=== PATIENT | female | born 1975 | race Caucasian/White ===

== ENCOUNTER 2017-08-19 12:00 | Outpatient (CLI) | payer OTHER ==
--- NOTE | 2017-08-19 14:42 | CT ---
CT ABDOMEN WITHOUT CONTRAST: Date: 08/19/17 HISTORY: Left upper quadrant pain since lap band removal and gastric sleeve surgery. FINDINGS: Comparison made with exam of 09/16/15. Absence of oral and IV contrast reduce the sensitivity of exam, particularly for evaluation of solid organs. There are interval changes of vertical sleeve gastrectomy and removal of the gastric band sin ce exam of 09/16/15. The lung bases are clear. No free air or free fluid is seen in the abdomen. No c alcified gallstones are noted. A punctate calculus is seen in the superior pole of the right kidney. Mild prominence of the pelvicaliceal systems. The small bowel loops are not abnormally dilated. There are mild degenerative changes in the lumbar spine. A bone island in the right iliac bone is again se en. There is mild pericolonic inflammatory change and thickening of the descending colon in the left mid abdomen. IMPRESSION: 1. Punctate, nonobstructing right renal calculus. 2. Left-sided colitis. POS: [facility]
== END 2017-08-19 12:01 | disposition home or self-care (01) ==
LOC: SCSCT 12:00
PROVIDERS: ATTEND Internal Medicine
DX: R10.9 Unspecified abdominal pain (principal); N20.0 Calculus of kidney; K52.9 Noninfective gastroenteritis and colitis, unspecified
CPT/HCPCS: 74150

== ENCOUNTER 2019-03-06 11:42 | Day surgery (SDC) | payer OTHER ==
[2019-03-05 11:38] VITALS: BMI 25.7
[2019-03-06 12:30] LABS: #Eosinphils 0.1 thou/uL (0.0-0.7); #Lymphocytes 1.4 thou/uL (1.20-3.40); #Monocytes 0.3 thou/uL (0.11-0.59); #Neutrophils 1.7 thou/uL (1.40-6.50); %Basophils 1.1 % (0.0-1.0); %Eosinophils 4.1 % (0.0-10.0); %Neutrophils 47.9 % (42.0-75.0); Hemoglobin 11.2 g/dL (12.0-16.0); Mean Corpuscular HGB CONC 32.7 g/dL (32.0-36.0); Mean Corpuscular Hemoglobin 27.4 pg (27.0-31.0); Mean Corpuscular Volume 83.8 fL (78.0-98.0); Mean Platelet Volume 8.3 fL (7.4-10.4); Platelet Count 265 thou/uL (130-400); RBC Distribution Width 13.2 % (11.5-14.5); Red Blood Cell (RBC) Count 4.11 mill/uL (4.20-5.40); White Blood Cell (WBC) Count 3.6 thou/uL (4.8-10.8)
--- NOTE | 2019-03-06 12:30 | HP ---
CHIEF COMPLAINT: Right upper quadrant abdominal pain. HISTORY OF PRESENT ILLNESS: This is a 43-year-old female, who has been having episodic right upper quadrant pain for about 6 months. Ultrasound showed cholelithiasis. PAST MEDICAL HISTORY: Obstructive sleep apnea, asthma. PAST SURGICAL HISTORY: She has had a lap band, rhinoplasty. She has had a sleeve. She has had a ventral hernia repair. MEDICATIONS: 1. Levothyroxine. 2. Biotin. 3. Multivitamins. FAMILY HISTORY: Father alive, hypertension. Mother has heart disease. SOCIAL HISTORY: She is a nurse practitioner. No tobacco. Occasional alcohol. ALLERGIES: TO CEPHALOSPORINS, LATEX. PHYSICAL EXAMINATION: VITAL SIGNS: Height 72, weight 190, and body mass index 25.8. GENERAL: She is a well-developed, well-nourished female, in no apparent distress. HEENT: Unremarkable. LUNGS: Clear. HEART: Regular rate and rhythm. ABDOMEN: Soft, nondistended, and nontender. Good bowel sounds. No hernias. EXTREMITIES: Good pulses. No pedal edema. ASSESSMENT: Symptomatic cholelithiasis. PLAN: Laparoscopic cholecystectomy. CONSENT: I have discussed the planned procedure as well as risk of bleeding, infection, injury to bile duct, injury to bowel, need to open, she understands and gives informed consent. Job ID: [id number]
[2019-03-06] MEDS ORDERED: Levofloxacin 500 mg/D5W 100 ml Premix Bag ONE (12:54)
[2019-03-06 13:06] LABS: ALT (SGPT) 16 U/L (8-55); AST (SGOT) 17 U/L (5-34); Albumin 4.3 g/dL (3.5-5.0); Alkaline Phosphatase 69 U/L (40-110); Bilirubin, Direct 0.5 mg/dL (0.1-0.3); Bilirubin, Total 1.3 mg/dL (0.2-1.2); Protein, Total 7.2 g/dL (6.0-8.3)
[2019-03-06 13:07] LABS: BHCG - Serum Negative (NEGATIVE); Pregs Control Background? CLEAR/WHITE (CLR/WHITE); Pregs Control Bar Appear? YES (CONTROL BAR)
[2019-03-06] MEDS ORDERED: Bupivacaine/Epinephrine 0.25% 30 ML VIAL ONE (13:21)
[2019-03-06] MEDS ORDERED: Iothalamate Meglumine 60% 50 ML VIAL FS ONE (13:21)
[2019-03-06] MEDS ORDERED: Scopolamine 1.5 mg/72 hour Patch ONE (13:26)
[2019-03-06] MEDS ORDERED: Midazolam HCl 2 mg/2 ml Vial ONE (13:26)
[2019-03-06] MEDS ORDERED: Fentanyl 100 MCG/2 ML VIAL ONE ×2 (13:36→14:49)
[2019-03-06] MEDS ORDERED: SUGAMMADEX SODIUM 500 MG/5 ML VIAL ONE (13:37)
[2019-03-06] MEDS ORDERED: Promethazine HCl 25 MG/ML VIAL ONE (14:49)
--- NOTE | 2019-03-06 15:19 | RAD ---
Intraoperative cholangiogram: 03/06/2019 COMPARISON: None HISTORY: Evaluate following cholecystectomy FINDINGS: A single image from an intraoperative cholangiogram is provided. There is contrast media wi thin the common bile duct in the duodenum. There is contrast media in the gallbladder fossa and there is a linear contrast within incompletely opacified intrahepatic biliary tree. There is contrast media in the cystic duct. There is a vague area of relative decreased density within the mid common duct just medial to the sup erior portion of the opacified duodenum. It's uncertain whether this represents an area of incomplete filling or a filling defect within the common bile duct on the basis of a stone, air bubbl e, and/or blood clot. IMPRESSION: Area of relative hypoenhancement of the midportion of the common bile duct which may repr esent a filling defect. Correlation with real-time imaging is essential. Transcribed Date/Time: 03/06/2019 3:28 PM
--- NOTE | 2019-03-09 12:22 | OP ---
DATE OF PROCEDURE: 03/06/2019 PREOPERATIVE DIAGNOSIS: Symptomatic cholelithiasis with elevated liver function. PROCEDURE PERFORMED: Laparoscopic cholecystectomy with intraoperative cholangiogram. INDICATIONS: The patient is a 43-year-old female, who has been having episodic right upper quadrant pain radiating to back associated with nausea. Ultrasound showed cholelithiasis. FINDINGS: She had a relatively nondilated cystic duct. The cholangiogram had a filling defect, but it turns out probably an air bubble, as when we change positions, it migrated superiorly as though it was little less dense than bile and had more of a cylindrical shape. Free flow into the duodenum. DESCRIPTION OF PROCEDURE: After informed consent was obtained, the patient was taken to the operating room, given general endotracheal anesthesia. She was placed in supine position. Abdomen was prepped and draped in usual fashion. Local anesthesia was infiltrated subcutaneously and deep, and a 12-mm incision was performed in the subumbilical region. Subcu was divided sharply. The fascia grasped, and 2 stay sutures of 0 Vicryl placed in each side of midline. Midline incised. Digital palpation revealed no local adhesions. A blunt 12 mm trocar inserted. Pneumoperitoneum was created to a pressure of 15 mmHg. A 0-degree laparoscope was inserted under direct vision. Three 5 mm ports were placed subcostally. The gallbladder was grasped. There were some adhesions to it. These were taken down sharply. The gallbladder advanced superiorly. The peritoneum was opened up distally to allow dissection and exposure of the cystic duct, artery in critical view. The artery was triply ligated and divided. A clip was placed at the base of the gallbladder, and incision was made in the cystic duct. An Arrow cholangiocatheter was inserted. An intraoperative cholangiogram was performed. I thought I had gotten all the air of it, but when I shot the film, there was the cylindrical lucency in the common duct. I thought maybe was the balloon, so I deflated the balloon, but it did not change. As we put her more superiorly, it sunil into the hepatic ducts and then we later down it distended, so it was a regional cra than bile and therefore, consistent with an air pocket. The duct was triply ligated and divided. The gallbladder was removed from its fossa utilizing electrocautery, removed from the abdomen through the umbilical port. Hemostasis was assured. Then, the patient had been complaining about a tethered laparoscopic incision on the left abdominal wall. Local was infiltrated. A transverse incision was performed through the old scar, subcu divided, and released then closed with interrupted 3-0 Vicryl. The skin was closed with interrupted 4-0 Rapide. Dermabond applied. The patient tolerated the procedure well, transferred to Recovery in good condition. Sponge and needle count verified correct x2. Job ID: [id number]
== END 2019-03-06 17:10 | disposition home or self-care (01) ==
LOC: SDC 11:42
PROVIDERS: ATTEND Surgery
PROC: BF121ZZ Fluoroscopy of Gallbladder using Low Osmolar Contrast (ICD-10-PCS; principal; 2019-03-06)
PROC: 0FT44ZZ Resection of Gallbladder, Percutaneous Endoscopic Approach (ICD-10-PCS; principal; 2019-03-06)
DX: K80.10 Calculus of gallbladder with chronic cholecystitis without obstruction (principal); G47.33 Obstructive sleep apnea (adult) (pediatric); J45.909 Unspecified asthma, uncomplicated; Z79.899 Other long term (current) drug therapy; Z88.1 Allergy status to other antibiotic agents
CPT/HCPCS: 36415; 47532; 80076; 84703; 85025; 88304; J1956; J2250; J2550; J3010

== ENCOUNTER 2022-02-13 13:47 | Outpatient (CLI) | payer OTHER | END 2022-02-13 13:48 | disposition home or self-care (01) | LOC: SCSRAD 13:47 | PROVIDERS: ATTEND Internal Medicine Rheumatology | DX: E83.52 Hypercalcemia (principal); E67.3 Hypervitaminosis D; H15.001 Unspecified scleritis, right eye | CPT/HCPCS: 71046 ==

== ENCOUNTER 2022-12-11 16:30 | Outpatient (CLI) | payer OTHER | END 2022-12-11 16:31 | disposition home or self-care (01) | LOC: SCSRAD 16:30 | PROVIDERS: ATTEND Chiropractor | DX: S93.402A Sprain of unspecified ligament of left ankle, initial encounter (principal); M79.671 Pain in right foot ==